=== PATIENT | female | born 1970 | race Two or more races ===

== ENCOUNTER 2023-05-17 11:58 | Emergency (ER) | payer BC ==
[2023-05-17 12:26] VITALS: BP 129/75; PULSE 74; RESP 18; TEMP 98.2; BMI 29.0
[2023-05-17] MEDS ORDERED: KETOROLAC TROMETHAMINE 30 MG/1 ML VIAL IM ONE (12:31)
[2023-05-17] MEDS ORDERED: KETOROLAC TROMETHAMINE 30 MG/1 ML VIAL ONE (12:34)
== END 2023-05-17 12:45 | disposition home or self-care (01) ==
LOC: JERFT 11:58
PROC: 3E0333Z Introduction of Anti-inflammatory into Peripheral Vein, Percutaneous Approach (ICD-10-PCS; principal; 2023-05-17)
DX: J02.8 Acute pharyngitis due to other specified organisms (principal); B34.9 Viral infection, unspecified; R13.10 Dysphagia, unspecified
CPT/HCPCS: 99284-25

== ENCOUNTER 2023-09-20 17:46 | Emergency (ER) | payer BC, OTHER ==
[2023-09-20 18:08] VITALS: BP 151/59; PULSE 65; RESP 18; TEMP 97.5; BMI 34.0
== END 2023-09-20 20:14 | disposition home or self-care (01) ==
LOC: JERFT 17:46 → JER 17:46 → JERFT 20:14
DX: R10.12 Left upper quadrant pain (principal); D17.5 Benign lipomatous neoplasm of intra-abdominal organs
CPT/HCPCS: 76705-TC; 99284-25